=== PATIENT | male | born 1955 | race Caucasian/White ===

== ENCOUNTER 2016-10-05 08:20 | Inpatient (IN) | payer OTHER ==
[~2016-10-05] VITALS: Ht 182.9 cm; Wt 146.1 kg
[2016-10-05] VITALS (25 sets, daily range): BP systolic 69–123; BP diastolic 45–108
--- NOTE | ~2016-10-05 | 2DMMODE ---
[facility] [address] [place] [address] 2 D/M-MODE ECHOCARDIOGRAM Name: ENOCH MAO Room #: 170-6 ADM IN M.R.#: [id number] Admission: 10/05/16 Attend Phys: Nima Mathur Discharge: Date of : 51 Date of Service: 10/05/16 1246 Report #: [id number] THIS REPORT FOR: //name// APPROVED REPORT Study performed: 10/05/2016 11:40:20 EXAM: Comprehensive 2D, Doppler, and color-flow Echocardiogram Patient Location: ER Room #: 6 Status: routine Other Information Study Quality: Good Indications CHF, sepsis, hypotension. Hx: valvular issues 2D Dimensions RVDd: 53.97 mm LVEF(%): 43.39 (>50%) IVSd: 9.43 (7-11mm) LVOT Diam: 22.84 (18-24mm) LVDd: 62.91 mm PWd: 11.21 (7-11mm) Ascending Ao: 34.40 (22-36mm) LVDs: 49.13 (25-40mm) Aortic Root: 31.85 mm Wing's LVEF: 43.39 % Volumes Left Atrial Volume (Systole) Single Plane 4CH: 390.26 mL Single Plane 2CH: 528.98 mL LA ESV Index: 173.00 mL/m2 Aortic Valve AoV Peak Ayden.: 1.12 m/s AO Peak Gr.: 5.05 mmHg LVOT Max P.14 mmHg LVOT Max V: 0.73 m/s FLORA Vmax: 2.66 cm2 Mitral Valve MV Decel. Time: 102.87 ms MV E Max Ayden.: 1.75 m/s Tricuspid Valve TR Peak Ayden.: 2.66 m/s RAP Estimate: 15.00 mmHg TR Peak Gr.: 28.00 mmHg [facility] [place] [place] [address] 2 D/M-MODE ECHOCARDIOGRAM Name: ENOCH MAO Room #: 170-6 ADM IN M.R.#: [id number] Admission: 10/05/16 Attend Phys: Nima Mathur Discharge: Date of : 51 Date of Service: 10/05/16 1246 Report #: [id number] Pressure: 43.00 mmHg Left Ventricle Left ventricle is moderately dilated. There is normal left ventricular wall thickness. Left ventricular systolic function is moderately decreased. LVEF is 35-40%. This study is not technically sufficient to allow evaluation of the LV diastolic function due to atrial fibrillation. Right Ventricle Right ventricle is moderately dilated. Right ventricle is hypokinetic. Atria Left atrium is massively dilated. Right atrium is massively dilated. Aortic Valve The aortic valve is mildly sclerotic Trace aortic regurgitation. There is no aortic valvular stenosis. Mitral Valve Grossly normal mitral leaflets Severe mitral regurgitation. No evidence of mitral valve stenosis. Tricuspid Valve The tricuspid valve is normal in structure. There is severe tricuspid regurgitation. The right atrial pressure is estimated at 15 mmHg. There is moderate pulmonary hypertension with an estimated PAP of 40-45mmHg. Pulmonic Valve The pulmonary valve is normal in structure. Trace pulmonic regurgitation. Great Vessels The aortic root is normal in size. The ascending aorta is normal in size. IVC is dilated and collapses <50% with inspiration. Pericardium A small pericardial effusion is present. <Conclusion> Left ventricular systolic function is moderately decreased. LVEF is 35-40%. [facility] [place] [place] [address] 2 D/M-MODE ECHOCARDIOGRAM Name: ENOCH MAO Room #: 170-6 ADM IN M.R.#: [id number] Admission: 10/05/16 Attend Phys: Nima Mathur Discharge: Date of : 51 Date of Service: 10/05/16 1246 Report #: [id number] Left and right atria are massively dilated. The aortic valve is mildly sclerotic. No aortic valvular stenosis; trace insufficiency Grossly normal mitral leaflets. Severe mitral regurgitation. Estimated pulmonary artery pressure of 40-45mmHg. A small pericardial effusion is present. <ELECTRONICALLY SIGNED> By: Ion Jordan MD, [facility] 10/05/16 1246 1246 1246 Ion Jordan MD, FACC /INF
--- NOTE | ~2016-10-05 | EKG ---
[address] [address] ELECTROCARDIOGRAM REPORT Name: ENOCH MAO Room #: 240-P ADM IN M.R.#: [id number] Admission: 10/05/16 Attend Phys: David Green MD Discharge: Date of : 51 Report #: [id number] THIS REPORT FOR: //name// [facility] ED Test Date: 2016-10-05 Test Time: 09:01:06 Pat Name: ENOCH MAO Department: Room: 240 Gender: M [employer] Technician: Kaelyn CHAVEZ : 1955 Requested By: Kristie Verdin Order Number: [id number] MD: Flakito Cr Measurements Intervals [place] Rate: 130 P: ND: QRS: 72 QRSD: 96 T: QT: 300 QTc: 441 Interpretive Statements Atrial fibrillation Low voltage, extremity leads No previous ECG available for comparison Electronically Signed On 10-06-2016 13:49:57 CDT by Flakito Cr [email or web address] <ELECTRONICALLY SIGNED> By: Flakito Cr MD 10/06/16 1349 0901 0 MD BYRON Carrington
[2016-10-05 08:30] LABS: ABG SAMPLE TYPE ARTERIAL; BE(vivo) -0.2 mmol/L (-2 to +3); HCO3 19.7 mmol/L (22.0-26.0); LACTATE 4.11 mmol/L (0.5-2.0); O2(CT) 18.6 mL/dL (15.0-23.0); O2Hb 98.4 % (92.0-98.0); PCO2 21.3 mmHg (35.0-45.0); PO2 223.9 mmHg (80.0-100.0); STICK SITE R.RADIAL; pH 7.584 (7.360-7.450); sO2 99.6 % (92.0-98.0); tCO2 20.4 mmol/L (24.0-30.0)
[2016-10-05] MEDS ORDERED: ELIQUIS5 MG PO (08:46)
[2016-10-05] MEDS ORDERED: ZYRTEC10 M5 PO (08:48)
[2016-10-05] MEDS ORDERED: LEVOTHYROXIN0.025 MG PO (08:49)
[2016-10-05] MEDS ORDERED: LANOXIN 0.120.125 M2 PO (08:49)
[2016-10-05] MEDS ORDERED: PEPCID20 MG PO (08:49)
[2016-10-05] MEDS ORDERED: MAGOX 400400 MG PO (08:49)
[2016-10-05] MEDS ORDERED: BAZA CR.1 E1 TP (08:50)
[2016-10-05] MEDS ORDERED: DEMADEX20 MG PO (08:50)
[2016-10-05] MEDS ORDERED: ARTIFICIAL TEA1 EACH OP (08:51)
[2016-10-05] MEDS ORDERED: APAP500 PO (08:51)
[2016-10-05] MEDS ORDERED: DERMACERIN CRE454 GM TOP (08:52)
[2016-10-05 08:53] LABS: HEMATOCRIT 37.2 % (42.0-52.0); HEMOGLOBIN 12.5 gm/dL (14.0-18.0); MCH 37.1 pg (26.0-34.0); MCHC 33.6 g/dL (28.0-37.0); MCV 110.3 fL (80.0-100.0); PLATELET COUNT 173 thou/uL (150-400); RBC 3.37 mil/uL (4.50-6.00); RDW 18.3 % (10.5-14.5); WBC 12.8 thou/uL (4.0-11.0)
[2016-10-05 08:57] LABS: MANUAL DIFF YES
[2016-10-05 09:08] LABS: CALCIUM 8.9 mg/dL (8.5-10.1); CREATININE 1.9 mg/dL (0.7-1.3); POTASSIUM 4.7 mmol/L (3.5-5.1)
[2016-10-05 09:10] LABS: APTT 44.5 Seconds (24.5-32.8); INR 1.6
[2016-10-05 09:20] LABS: ALBUMIN 3.3 g/dL (3.4-5.0); DIRECT BILIRUBIN 0.9 mg/dL (<0.1-0.3); TOTAL BILIRUBIN 2.7 mg/dL (<0.1-1.0); TOTAL PROTEIN 6.3 g/dL (6.4-8.2)
[2016-10-05 09:31] LABS: ABSOLUTE NEUTROPHILS 11.8 thou/uL (1.4-8.2); ANISOCYTOSIS 2+; MACROCYTES 2+; NUCLEATED RBCS 1 /100WBC; PLATELET ESTIMATE NORMAL; TOTAL CELL COUNT 100
[2016-10-05 12:24] LABS: URINE BILIRUBIN 1+ (Negative); URINE BLOOD 1+ (Negative); URINE COLOR YELLOW; URINE GLUCOSE-RANDOM* NEGATIVE (Negative); URINE KETONES NEGATIVE (Negative); URINE LEUKOCYTES-REFLEX NEGATIVE (Negative); URINE PROTEIN (DIPSTICK) 2+ (Negative); URINE UROBILINOGEN 0.2 E.U./dl (0.2-1.0)
[2016-10-05 12:26] LABS: ICTOTEST (BILI CONFIRMATORY) Negative (Negative)
[2016-10-05 12:50] LABS: SQUAMOUS 0-3 Few /LPF (0-3)
[2016-10-05 12:51] LABS: AMORPHOUS URATES Many /LPF (None Seen); HYALINE CASTS 0-3 Few /LPF (None Seen); URINE RBC 0-2 Rare /HPF (0-2); URINE WBC-REFLEX 0-5 Rare /HPF (0-5)
[2016-10-05 13:28] LABS: ABG SAMPLE TYPE ARTERIAL; BE(vivo) -6.4 mmol/L (-2 to +3); HCO3 15.7 mmol/L (22.0-26.0); LACTATE 7.28 mmol/L (0.5-2.0); O2Hb 95.4 % (92.0-98.0); PCO2 22.9 mmHg (35.0-45.0); PO2 91.8 mmHg (80.0-100.0); STICK SITE R.RADIAL; pH 7.453 (7.360-7.450); sO2 97.5 % (92.0-98.0); tCO2 16.4 mmol/L (24.0-30.0)
[2016-10-06] VITALS (54 sets, daily range): BP systolic 75–123; BP diastolic 27–108
[2016-10-06 04:42] LABS: HEMATOCRIT 35.6 % (42.0-52.0); HEMOGLOBIN 11.6 gm/dL (14.0-18.0); MCH 37.2 pg (26.0-34.0); MCHC 32.6 g/dL (28.0-37.0); PLATELET COUNT 132 thou/uL (150-400); RBC 3.12 mil/uL (4.50-6.00); RDW 18.9 % (10.5-14.5); WBC 12.7 thou/uL (4.0-11.0)
[2016-10-06 04:50] LABS: MANUAL DIFF YES
[2016-10-06 05:00] LABS: ABG SAMPLE TYPE ARTERIAL; BE(vivo) -12.6 mmol/L (-2 to +3); HCO3 10.3 mmol/L (22.0-26.0); O2(CT) 17.4 mL/dL (15.0-23.0); O2Hb 97.2 % (92.0-98.0); PO2 114.6 mmHg (80.0-100.0); pH 7.372 (7.360-7.450); sO2 98.2 % (92.0-98.0); tCO2 10.8 mmol/L (24.0-30.0)
[2016-10-06 05:01] LABS: PCO2 18.1 mmHg (35.0-45.0); STICK SITE R.BRACHIAL
[2016-10-06 05:08] LABS: ALBUMIN 2.7 g/dL (3.4-5.0); CREATININE 1.9 mg/dL (0.7-1.3); POTASSIUM 4.7 mmol/L (3.5-5.1); TOTAL BILIRUBIN 3.8 mg/dL (<0.1-1.0); TOTAL PROTEIN 5.4 g/dL (6.4-8.2)
[2016-10-06 08:01] LABS: ABSOLUTE NEUTROPHILS 11.8 thou/uL (1.4-8.2); ANISOCYTOSIS 2+; MACROCYTES 2+; METAMYELOCYTES 1 %; POLYCHROMASIA SLIGHT; TOTAL CELL COUNT 100
[2016-10-06 09:44] LABS: URINE BILIRUBIN 1+ (Negative); URINE BLOOD 2+ (Negative); URINE COLOR YELLOW; URINE GLUCOSE-RANDOM* NEGATIVE (Negative); URINE KETONES NEGATIVE (Negative); URINE NITRITE NEGATIVE (Negative); URINE PROTEIN (DIPSTICK) 2+ (Negative); URINE SPECIFIC GRAVITY 1.025 (1.003-1.035); URINE UROBILINOGEN 0.2 E.U./dl (0.2-1.0)
[2016-10-06 09:49] LABS: URINE CREATININE-RANDOM* 138.1 mg/dL; URINE PROTEIN-RANDOM* 113.7 mg/dL (<11.9)
[2016-10-06 09:52] LABS: ICTOTEST (BILI CONFIRMATORY) Positive (Negative)
[2016-10-06 10:08] LABS: SQUAMOUS 0-3 Few /LPF (0-3)
[2016-10-06 10:09] LABS: AMORPHOUS URATES Few /LPF (None Seen); BACTERIA 1-9 Few /HPF (None Seen); HYALINE CASTS 0-3 Few /LPF (None Seen); URINE RBC 3-10 Few /HPF (0-2); URINE WBC 0-5 Rare /HPF (0-5)
[2016-10-06 18:15] LABS: ABG SAMPLE TYPE ARTERIAL; BE(vivo) -4.7 mmol/L (-2 to +3); HCO3 17.2 mmol/L (22.0-26.0); O2(CT) 17.2 mL/dL (15.0-23.0); O2Hb 97.2 % (92.0-98.0); PO2 127.4 mmHg (80.0-100.0); pH 7.475 (7.360-7.450); sO2 98.8 % (92.0-98.0); tCO2 17.9 mmol/L (24.0-30.0)
[2016-10-06 18:17] LABS: LACTATE 7.56 mmol/L (0.5-2.0); PCO2 23.9 mmHg (35.0-45.0); STICK SITE L.RADIAL
[2016-10-06 18:19] LABS: Pressure Support 10 cm H20
[2016-10-07] VITALS (32 sets, daily range): BP systolic 82–109; BP diastolic 51–83
[2016-10-07 05:48] LABS: ALBUMIN 2.5 g/dL (3.4-5.0); CALCIUM 7.8 mg/dL (8.5-10.1); CREATININE 1.4 mg/dL (0.7-1.3); PHOSPHORUS 2.4 mg/dL (2.5-4.9); POTASSIUM 4.4 mmol/L (3.5-5.1); TOTAL BILIRUBIN 4.9 mg/dL (<0.1-1.0)
[2016-10-07 11:47] LABS: INR 2.2
[2016-10-07 15:55] LABS: ABG SAMPLE TYPE ARTERIAL; BE(vivo) 0.3 mmol/L (-2 to +3); HCO3 21.8 mmol/L (22.0-26.0); LACTATE 3.49 mmol/L (0.5-2.0); O2(CT) 17.1 mL/dL (15.0-23.0); O2Hb 97.7 % (92.0-98.0); PCO2 26.8 mmHg (35.0-45.0); PO2 128.3 mmHg (80.0-100.0); STICK SITE R.RADIAL; pH 7.529 (7.360-7.450); sO2 98.9 % (92.0-98.0); tCO2 22.7 mmol/L (24.0-30.0)
[2016-10-07 17:48] LABS: ALBUMIN 2.6 g/dL (3.4-5.0); DIRECT BILIRUBIN 3.1 mg/dL (<0.1-0.3); TOTAL BILIRUBIN 5.6 mg/dL (<0.1-1.0); TOTAL PROTEIN 5.1 g/dL (6.4-8.2)
[2016-10-08] VITALS (24 sets, daily range): BP systolic 83–117; BP diastolic 57–84
[2016-10-08 05:36] LABS: HEMATOCRIT 34.9 % (42.0-52.0); HEMOGLOBIN 11.7 gm/dL (14.0-18.0); MCH 37.4 pg (26.0-34.0); MCHC 33.4 g/dL (28.0-37.0); MCV 111.8 fL (80.0-100.0); RBC 3.12 mil/uL (4.50-6.00); RDW 18.8 % (10.5-14.5); WBC 7.4 thou/uL (4.0-11.0)
[2016-10-08 05:43] LABS: ABG SAMPLE TYPE ARTERIAL; BE(vivo) -2.2 mmol/L (-2 to +3); HCO3 21.7 mmol/L (22.0-26.0); O2(CT) 17.2 mL/dL (15.0-23.0); O2Hb 95.3 % (92.0-98.0); PCO2 34.5 mmHg (35.0-45.0); PO2 91.1 mmHg (80.0-100.0); pH 7.417 (7.360-7.450); sO2 97.1 % (92.0-98.0); tCO2 22.8 mmol/L (24.0-30.0)
[2016-10-08 05:44] LABS: STICK SITE LRA
[2016-10-08 05:45] LABS: Pressure Support 10 cm H20
[2016-10-08 05:56] LABS: ALBUMIN 2.6 g/dL (3.4-5.0); CALCIUM 8.1 mg/dL (8.5-10.1); CREATININE 1.2 mg/dL (0.7-1.3); PHOSPHORUS 2.5 mg/dL (2.5-4.9); POTASSIUM 4.4 mmol/L (3.5-5.1); TOTAL BILIRUBIN 5.8 mg/dL (<0.1-1.0); TOTAL PROTEIN 5.1 g/dL (6.4-8.2)
[2016-10-09] VITALS (23 sets, daily range): BP systolic 86–101; BP diastolic 58–81
[2016-10-09 05:36] LABS: ABG SAMPLE TYPE ARTERIAL; BE(vivo) -3.7 mmol/L (-2 to +3); HCO3 20.5 mmol/L (22.0-26.0); LACTATE 4.36 mmol/L (0.5-2.0); O2(CT) 17.5 mL/dL (15.0-23.0); PCO2 34.7 mmHg (35.0-45.0); sO2 98.4 % (92.0-98.0); tCO2 21.6 mmol/L (24.0-30.0)
[2016-10-09 05:37] LABS: STICK SITE L.RADIAL
[2016-10-09 05:49] LABS: HEMATOCRIT 37.1 % (42.0-52.0); HEMOGLOBIN 12.2 gm/dL (14.0-18.0); MCH 37.1 pg (26.0-34.0); MCHC 32.8 g/dL (28.0-37.0); RBC 3.28 mil/uL (4.50-6.00); RDW 19.3 % (10.5-14.5); WBC 7.9 thou/uL (4.0-11.0)
[2016-10-09 06:01] LABS: ALBUMIN 2.7 g/dL (3.4-5.0); CALCIUM 8.3 mg/dL (8.5-10.1); CREATININE 1.3 mg/dL (0.7-1.3); PHOSPHORUS 3.8 mg/dL (2.5-4.9); POTASSIUM 4.8 mmol/L (3.5-5.1); TOTAL BILIRUBIN 5.6 mg/dL (<0.1-1.0); TOTAL PROTEIN 5.4 g/dL (6.4-8.2)
[2016-10-09 06:03] LABS: INR 1.7; PROTIME 17.5 Seconds (9.3-11.4)
[2016-10-10] VITALS (98 sets, daily range): BP systolic 66–122; BP diastolic 41–90
[2016-10-10 09:17] LABS: HEMOGLOBIN 12.6 gm/dL (14.0-18.0); MCH 37.6 pg (26.0-34.0); MCHC 32.4 g/dL (28.0-37.0); MCV 115.9 fL (80.0-100.0); PLATELET COUNT 129 thou/uL (150-400); RBC 3.36 mil/uL (4.50-6.00); WBC 8.8 thou/uL (4.0-11.0)
[2016-10-10 09:21] LABS: MANUAL DIFF YES
[2016-10-10 10:05] LABS: CALCIUM 8.2 mg/dL (8.5-10.1); CREATININE 1.8 mg/dL (0.7-1.3); POTASSIUM 5.4 mmol/L (3.5-5.1)
[2016-10-10 13:04] LABS: ABSOLUTE NEUTROPHILS 7.2 thou/uL (1.4-8.2); ANISOCYTOSIS 1+; MACROCYTES 1+; TOTAL CELL COUNT 100
[2016-10-10 15:47] LABS: HEMATOCRIT 40.8 % (42.0-52.0); HEMOGLOBIN 12.7 gm/dL (14.0-18.0); MCH 37.3 pg (26.0-34.0); MCHC 31.2 g/dL (28.0-37.0); MCV 119.3 fL (80.0-100.0); RBC 3.42 mil/uL (4.50-6.00); RDW 19.5 % (10.5-14.5); WBC 11.5 thou/uL (4.0-11.0)
[2016-10-10 15:53] LABS: CALCIUM 8.1 mg/dL (8.5-10.1); CREATININE 2.1 mg/dL (0.7-1.3); POTASSIUM 5.8 mmol/L (3.5-5.1)
[2016-10-10 15:55] LABS: ABG SAMPLE TYPE ARTERIAL; BE(vivo) -7.3 mmol/L (-2 to +3); HCO3 24.8 mmol/L (22.0-26.0); O2(CT) 19.7 mL/dL (15.0-23.0); O2Hb 97.4 % (92.0-98.0); PO2 225.9 mmHg (80.0-100.0); sO2 99.1 % (92.0-98.0); tCO2 27.4 mmol/L (24.0-30.0)
[2016-10-10 15:56] LABS: LACTATE 3.55 mmol/L (0.5-2.0); PCO2 86.8 mmHg (35.0-45.0); STICK SITE R.RADIAL; pH 7.073 (7.360-7.450)
[2016-10-10 20:26] LABS: ABG SAMPLE TYPE ARTERIAL; BE(vivo) -7.7 mmol/L (-2 to +3); HCO3 22.8 mmol/L (22.0-26.0); O2(CT) 18.1 mL/dL (15.0-23.0); O2Hb 92.9 % (92.0-98.0); PO2 88.8 mmHg (80.0-100.0); sO2 93.4 % (92.0-98.0)
[2016-10-10 20:27] LABS: LACTATE 4.01 mmol/L (0.5-2.0); PCO2 71.2 mmHg (35.0-45.0); Pressure Support 5 cm H20; STICK SITE R.BRACHIAL; pH 7.124 (7.360-7.450)
[2016-10-10 22:04] LABS: ABG SAMPLE TYPE ARTERIAL; HCO3 21.3 mmol/L (22.0-26.0); LACTATE 3.43 mmol/L (0.5-2.0); O2(CT) 18.3 mL/dL (15.0-23.0); O2Hb 95.9 % (92.0-98.0); PCO2 48.9 mmHg (35.0-45.0); PO2 110.1 mmHg (80.0-100.0); sO2 97.3 % (92.0-98.0); tCO2 22.8 mmol/L (24.0-30.0)
[2016-10-10 22:05] LABS: Pressure Support 10 cm H20; STICK SITE R.RADIAL; pH 7.257 (7.360-7.450)
[2016-10-11] VITALS (52 sets, daily range): BP systolic 88–146; BP diastolic 45–129
[2016-10-11 06:00] LABS: HEMATOCRIT 39.4 % (42.0-52.0); HEMOGLOBIN 12.7 gm/dL (14.0-18.0); MCH 36.7 pg (26.0-34.0); MCHC 32.2 g/dL (28.0-37.0); RBC 3.45 mil/uL (4.50-6.00); RDW 18.8 % (10.5-14.5); WBC 7.3 thou/uL (4.0-11.0)
[2016-10-11 06:05] LABS: MCV 114.1 fL (80.0-100.0)
[2016-10-11 06:15] LABS: ALBUMIN 2.6 g/dL (3.4-5.0); CALCIUM 8.5 mg/dL (8.5-10.1); CREATININE 1.7 mg/dL (0.7-1.3); TOTAL BILIRUBIN 3.9 mg/dL (<0.1-1.0); TOTAL PROTEIN 5.4 g/dL (6.4-8.2)
[2016-10-11 06:16] LABS: POTASSIUM 4.4 mmol/L (3.5-5.1)
[2016-10-11 07:40] LABS: ABG SAMPLE TYPE ARTERIAL; BE(vivo) -1.7 mmol/L (-2 to +3); HCO3 24.9 mmol/L (22.0-26.0); LACTATE 2.96 mmol/L (0.5-2.0); O2(CT) 18.2 mL/dL (15.0-23.0); O2Hb 95.5 % (92.0-98.0); PCO2 49.4 mmHg (35.0-45.0); PO2 101.9 mmHg (80.0-100.0); sO2 97.2 % (92.0-98.0); tCO2 26.4 mmol/L (24.0-30.0)
[2016-10-11 07:41] LABS: STICK SITE R.RADIAL
[2016-10-11 07:42] LABS: Pressure Support 10 cm H20
[2016-10-11 11:07] LABS: URINE BILIRUBIN 1+ (Negative); URINE BLOOD 1+ (Negative); URINE COLOR YELLOW; URINE GLUCOSE-RANDOM* NEGATIVE (Negative); URINE KETONES NEGATIVE (Negative); URINE LEUKOCYTES-REFLEX TRACE (Negative); URINE PROTEIN (DIPSTICK) 1+ (Negative); URINE SPECIFIC GRAVITY 1.015 (1.003-1.035); URINE UROBILINOGEN 0.2 E.U./dl (0.2-1.0)
[2016-10-11 11:10] LABS: ICTOTEST (BILI CONFIRMATORY) Positive (Negative)
[2016-10-11 11:13] LABS: ABG SAMPLE TYPE ARTERIAL; BE(vivo) -3.8 mmol/L (-2 to +3); HCO3 24.6 mmol/L (22.0-26.0); LACTATE 2.75 mmol/L (0.5-2.0); O2(CT) 18.4 mL/dL (15.0-23.0); O2Hb 95.3 % (92.0-98.0); PCO2 59.3 mmHg (35.0-45.0); PO2 107.3 mmHg (80.0-100.0); sO2 96.9 % (92.0-98.0); tCO2 26.4 mmol/L (24.0-30.0)
[2016-10-11 11:14] LABS: STICK SITE R.RADIAL; pH 7.235 (7.360-7.450)
[2016-10-11 11:40] LABS: HYALINE CASTS 4-10 Moderate /LPF (None Seen); SQUAMOUS None Seen /LPF (0-3)
[2016-10-11 11:43] LABS: URINE RBC 0-2 Rare /HPF (0-2)
[2016-10-11 11:44] LABS: CRYSTALS None Seen /LPF (None Seen)
[2016-10-11 11:45] LABS: URINE WBC-REFLEX 6-15 Few /HPF (0-5)
[2016-10-11 22:59] LABS: ABG SAMPLE TYPE ARTERIAL; BE(vivo) -5.9 mmol/L (-2 to +3); LACTATE 2.65 mmol/L (0.5-2.0); O2(CT) 15.9 mL/dL (15.0-23.0); PCO2 87.5 mmHg (35.0-45.0); PO2 64.2 mmHg (80.0-100.0); STICK SITE R.BRACHIAL; sO2 82.4 % (92.0-98.0); tCO2 28.6 mmol/L (24.0-30.0)
[2016-10-11 23:00] LABS: ABG COMMENT BIPAP 16/6; Pressure Support 10 cm H20
[2016-10-12] VITALS (76 sets, daily range): BP systolic 84–142; BP diastolic 41–119
[2016-10-12 00:10] LABS: ABG SAMPLE TYPE ARTERIAL; BE(vivo) -3.1 mmol/L (-2 to +3); HCO3 23.6 mmol/L (22.0-26.0); LACTATE 2.45 mmol/L (0.5-2.0); O2(CT) 18.8 mL/dL (15.0-23.0); O2Hb 98.2 % (92.0-98.0); PCO2 48.9 mmHg (35.0-45.0); PO2 416.1 mmHg (80.0-100.0); sO2 99.8 % (92.0-98.0); tCO2 25.1 mmol/L (24.0-30.0)
[2016-10-12 00:11] LABS: STICK SITE R.BRACHIAL
[2016-10-12 00:12] LABS: TIDAL VOLUME 600 ml; pH 7.301 (7.360-7.450)
[2016-10-12 05:44] LABS: ALBUMIN 2.2 g/dL (3.4-5.0); CALCIUM 7.8 mg/dL (8.5-10.1); CREATININE 1.4 mg/dL (0.7-1.3); PHOSPHORUS 3.2 mg/dL (2.5-4.9)
[2016-10-12 12:13] LABS: ABG SAMPLE TYPE ARTERIAL; BE(vivo) -0.2 mmol/L (-2 to +3); HCO3 26.9 mmol/L (22.0-26.0); LACTATE 2.19 mmol/L (0.5-2.0); O2(CT) 17.7 mL/dL (15.0-23.0); O2Hb 97.7 % (92.0-98.0); PCO2 54.9 mmHg (35.0-45.0); PO2 148.2 mmHg (80.0-100.0); STICK SITE R.RADIAL; pH 7.308 (7.360-7.450); sO2 98.7 % (92.0-98.0); tCO2 28.6 mmol/L (24.0-30.0)
[2016-10-12 12:14] LABS: TIDAL VOLUME 500 ml
[2016-10-13] VITALS (71 sets, daily range): BP systolic 90–132; BP diastolic 43–106
[2016-10-13 05:38] LABS: ALBUMIN 2.2 g/dL (3.4-5.0); CALCIUM 7.8 mg/dL (8.5-10.1); CREATININE 1.4 mg/dL (0.7-1.3); PHOSPHORUS 4.1 mg/dL (2.5-4.9); POTASSIUM 4.5 mmol/L (3.5-5.1)
== END 2016-10-13 20:17 | DRG 871 ==
LOC: ER 08:20 → EROBS 10:58 → ICU 10:58
PROVIDERS: Emergency Medicine; Hospitalist; Internal Medicine Geriatric Medicine; Internal Medicine Pulmonary Disease; Specialist
PROC: 02HV33Z Insertion of Infusion Device into Superior Vena Cava, Percutaneous Approach (ICD-10-PCS; principal; 2016-10-05)
PROC: B548ZZA Ultrasonography of Superior Vena Cava, Guidance (ICD-10-PCS; principal; 2016-10-05)
PROC: 5A09557 Assistance with Respiratory Ventilation, Greater than 96 Consecutive Hours, Continuous Positive Airway Pressure (ICD-10-PCS; principal; 2016-10-05)
PROC: 5A1935Z Respiratory Ventilation, Less than 24 Consecutive Hours (ICD-10-PCS; 2016-10-12)
PROC: 0BH17EZ Insertion of Endotracheal Airway into Trachea, Via Natural or Artificial Opening (ICD-10-PCS; 2016-10-12)
DX: A41.01 Sepsis due to Methicillin susceptible Staphylococcus aureus (principal); R65.21 Severe sepsis with septic shock; I50.41 Acute combined systolic (congestive) and diastolic (congestive) heart failure; G93.41 Metabolic encephalopathy; J96.01 Acute respiratory failure with hypoxia; K72.00 Acute and subacute hepatic failure without coma; J96.02 Acute respiratory failure with hypercapnia; J18.9 Pneumonia, unspecified organism; I42.9 Cardiomyopathy, unspecified; N17.9 Acute kidney failure, unspecified; E87.0 Hyperosmolality and hypernatremia; E46 Unspecified protein-calorie malnutrition; Z68.41 Body mass index [BMI] 40.0-44.9, adult; T81.72XA Complication of vein following a procedure, not elsewhere classified, initial encounter; I48.91 Unspecified atrial fibrillation; I80.8 Phlebitis and thrombophlebitis of other sites; Y84.8 Other medical procedures as the cause of abnormal reaction of the patient, or of later complication, without mention of misadventure at the time of the procedure; Y92.238 Other place in hospital as the place of occurrence of the external cause; E78.5 Hyperlipidemia, unspecified; K21.9 Gastro-esophageal reflux disease without esophagitis; E66.01 Morbid (severe) obesity due to excess calories; I27.81 Cor pulmonale (chronic); N18.9 Chronic kidney disease, unspecified; I87.2 Venous insufficiency (chronic) (peripheral); I08.1 Rheumatic disorders of both mitral and tricuspid valves; I73.9 Peripheral vascular disease, unspecified; L89.152 Pressure ulcer of sacral region, stage 2; S80.812A Abrasion, left lower leg, initial encounter; S80.811A Abrasion, right lower leg, initial encounter; X58.XXXA Exposure to other specified factors, initial encounter; Y93.89 Activity, other specified; Y92.89 Other specified places as the place of occurrence of the external cause; Y99.8 Other external cause status; Z88.0 Allergy status to penicillin; Z88.5 Allergy status to narcotic agent; Z88.8 Allergy status to other drugs, medicaments and biological substances; Z79.01 Long term (current) use of anticoagulants; Z79.899 Other long term (current) drug therapy; Z66 Do not resuscitate; Z51.5 Encounter for palliative care
CPT/HCPCS: 10078; 27000